=== PATIENT | female | born 1970 | race Caucasian/White ===

== ENCOUNTER 2018-01-16 19:50 | Emergency (ER) | payer MEDICAID ==
[~2018-01-16] VITALS: Ht 154.9 cm; Wt 102.5 kg
[~2018-01-16 19:50] MED LIST: LEVO150T PO
[2018-01-16 20:40] LABS: BASOPHILS # (AUTO) 0.1 K/uL (0.0-8.0); BASOPHILS % (AUTO) 0.7 % (0.0-2.0); EOSINOPHILS # (AUTO) 0.1 K/uL (0.0-0.7); HEMATOCRIT 38.4 % (31.2-41.9); HEMOGLOBIN 12.1 g/dL (10.9-14.3); LYMPHOCYTES % (AUTO) 35.7 % (20.5-51.5); MEAN CORPUSCULAR HGB CONC 32 g/dL (32.3-35.6); MEAN CORPUSCULAR VOLUME 69.6 fL (75.5-95.3); MONOCYTES # (AUTO) 0.5 K/uL (2.0-10.0); MONOCYTES % (AUTO) 6.2 % (0.0-11.0); NEUTROPHILS # (AUTO) 4.7 K/uL (1.8-8.9); NEUTROPHILS % (AUTO) 56.4 % (38.5-71.5); PLATELET COUNT (AUTO) 255 K/uL (179-408); RED BLOOD CELL COUNT(AUTO) 5.52 MIL/uL (3.63-4.92); WHITE BLOOD COUNT (AUTO) 8.4 K/uL (3.8-11.8)
[2018-01-16 20:44] LABS: *BILIRUBIN,URIN NEGATIVE (NEGATIVE); *BLOOD, URINE 1+ (NEGATIVE); *CLARITY,URINE SLIGHTLY CLOUDY (CLEAR); *COLOR,URINE YELLOW (YELLOW); *KETONES,URINE NEGATIVE (NEGATIVE); *PROTEIN,URINE NEGATIVE (NEGATIVE); *UROBILINOGEN,URINE 0.2 E.U./dl (NORMAL); LEUKOCYTE ESTERASE ,URINE NEGATIVE (NEGATIVE); NITRITE, URINE NEGATIVE (NEGATIVE); UGLUCOSE NEGATIVE (NEGATIVE)
[2018-01-16 20:45] LABS: *URINE HCG, QUAL NEGATIVE (NEGATIVE)
[2018-01-16 20:47] LABS: BACTERIA,URINE NONE SEEN /HPF (NONE SEEN); SQUAMOUS EPITHELIAL CELL,UR FEW /HPF (NONE SEEN); WBC,URINE 0-3 /HPF (0-3)
[2018-01-16 20:51] LABS: CREATININE 0.7 mg/dL (0.6-1.3); POTASSIUM 4.1 mmol/L (3.5-5.1)
[2018-01-16 20:57] LABS: BILIRUBIN,DIRECT 0.1 mg/dL (0.0-0.2); BILIRUBIN,TOTAL 0.3 mg/dL (0.2-1.0); TOTAL PROTEIN, SERUM 7.5 g/dL (6.4-8.2)
--- NOTE | 2018-01-16 21:34 | NUR ---
Patient discharged to home in stable conditon. Written and verbal after care instructions given. Patient verbalizes understanding of instructions.
[2018-01-16 21:35] VITALS: BP 119/88
== END 2018-01-16 21:35 | disposition home or self-care (01) ==
LOC: ER 19:52
DX: K59.00 Constipation, unspecified (principal); K80.20 Calculus of gallbladder without cholecystitis without obstruction; E03.9 Hypothyroidism, unspecified; Z88.8 Allergy status to other drugs, medicaments and biological substances; Z79.899 Other long term (current) drug therapy
CPT/HCPCS: 36415; 71045; 83690; 84703; 85025; A4663

== ENCOUNTER 2018-07-16 22:54 | Emergency (ER) | payer MEDICAID ==
[~2018-07-16] VITALS: Ht 154.9 cm; Wt 99.8 kg
--- NOTE | 2018-07-16 23:00 | NUR ---
Pt. ambulated into ED w/ c/o CP 01/02 for past 30 min., reports contacting her PCP 6 hours ago w/ c/o jaw pain who told her to visit ED,
--- NOTE | 2018-07-16 23:14 | NUR ---
highway engineering technician in w/ pt. for blood draw,
--- NOTE | 2018-07-16 23:28 | NUR ---
Rad. tech. called for chest xray
[2018-07-16 23:33] LABS: BASOPHILS # (AUTO) 0.1 K/uL (0.0-8.0); BASOPHILS % (AUTO) 1.1 % (0.0-2.0); EOSINOPHILS # (AUTO) 0.2 K/uL (0.0-0.7); EOSINOPHILS % (AUTO) 1.7 % (0.0-7.0); HEMATOCRIT 35.2 % (31.2-41.9); HEMOGLOBIN 11.8 g/dL (10.9-14.3); LYMPHOCYTES # (AUTO) 3.9 K/uL (20.0-40.0); LYMPHOCYTES % (AUTO) 40.2 % (20.5-51.5); MEAN CORPUSCULAR HEMOGLOBIN 22.7 uug (24.7-32.8); MEAN CORPUSCULAR HGB CONC 33 g/dL (32.3-35.6); MEAN CORPUSCULAR VOLUME 67.9 fL (75.5-95.3); MONOCYTES # (AUTO) 0.5 K/uL (2.0-10.0); MONOCYTES % (AUTO) 5.4 % (0.0-11.0); NEUTROPHILS % (AUTO) 51.6 % (38.5-71.5); PLATELET COUNT (AUTO) 272 K/uL (179-408); RED BLOOD CELL COUNT(AUTO) 5.19 MIL/uL (3.63-4.92); WHITE BLOOD COUNT (AUTO) 9.6 K/uL (3.8-11.8)
--- NOTE | 2018-07-16 23:33 | NUR ---
Rad. tech. at bedside for chest xray
[2018-07-16 23:39] LABS: CREATININE 0.7 mg/dL (0.6-1.3); POTASSIUM 3.5 mmol/L (3.5-5.1)
[2018-07-16 23:51] LABS: BILIRUBIN,DIRECT 0.1 mg/dL (0.0-0.2); BILIRUBIN,TOTAL 0.2 mg/dL (0.2-1.0); TOTAL PROTEIN, SERUM 7.3 g/dL (6.4-8.2)
--- NOTE | 2018-07-17 00:11 | NUR ---
Nares swab specimen collected and sent to lab for influenza testing
[2018-07-17 01:04] LABS: EOSINOPHILS % (MANUAL) 4 % (0-8); LYMPHOCYTES % (MANUAL) 27 % (20-40); MONOCYTES % (MANUAL) 2 % (2-10); NEUTROPHILS % (MANUAL) 67 % (42-75)
--- NOTE | 2018-07-17 01:08 | NUR ---
Patient discharged to home in stable conditon. Written and verbal after care instructions given. Patient verbalizes understanding of instructions. Pt. d/c per MD orders, ID band removed, all belongings w/ pt., ambulated out of ED w/ steady gait, left in private vehicle, NAD
== END 2018-07-17 01:12 | disposition home or self-care (01) ==
LOC: ER 22:54
DX: R07.89 Other chest pain (principal); R68.84 Jaw pain; E03.9 Hypothyroidism, unspecified; Z88.8 Allergy status to other drugs, medicaments and biological substances; Z79.899 Other long term (current) drug therapy
CPT/HCPCS: 36415; 70030-TC; 71045; 85025; 85730; 87400; 93005; A4663

== ENCOUNTER 2018-09-24 15:11 | Emergency (ER) | payer MEDICAID ==
[~2018-09-24] VITALS: Ht 154.9 cm; Wt 99.8 kg
--- NOTE | 2018-09-24 16:05 | NUR ---
PATIENT WAS MSE BY DR TONY IN ROOM 02A.
[2018-09-24] MEDS ORDERED: BENZONATATE 100 MG CAPSULE PO ONE (16:15)
[2018-09-24] MEDS ORDERED: BENZONATATE 100 MG CAPSULE ONE (16:16)
[2018-09-24 16:34] LABS: CARBON DIOXIDE 26 mmol/L (21-32); CHLORIDE 105 mmol/L (98-107); CREATININE 0.5 mg/dL (0.6-1.3); GLUCOSE 85 mg/dL (74-106); POTASSIUM 3.8 mmol/L (3.5-5.1); UREA NITROGEN, BLOOD 10 mg/dL (7-18)
[2018-09-24 16:39] LABS: ALANINE AMINOTRANSFERASE 41 U/L (14-59); ALKALINE PHOSPHATASE 78 U/L (50-136); ASPARTATE AMINOTRANSFERASE 19 U/L (15-37); BILIRUBIN,DIRECT 0.1 mg/dL (0.0-0.2); BILIRUBIN,TOTAL 0.3 mg/dL (0.2-1.0); TOTAL PROTEIN, SERUM 7.3 g/dL (6.4-8.2)
[2018-09-24 16:41] LABS: BASOPHILS # (AUTO) 0.1 K/uL (0.0-8.0); BASOPHILS % (AUTO) 0.6 % (0.0-2.0); EOSINOPHILS # (AUTO) 0.1 K/uL (0.0-0.7); HEMOGLOBIN 11.6 g/dL (10.9-14.3); LYMPHOCYTES # (AUTO) 2.5 K/uL (20.0-40.0); LYMPHOCYTES % (AUTO) 30.8 % (20.5-51.5); MEAN CORPUSCULAR HEMOGLOBIN 21.2 uug (24.7-32.8); MEAN CORPUSCULAR HGB CONC 31 g/dL (32.3-35.6); MEAN CORPUSCULAR VOLUME 67.6 fL (75.5-95.3); MONOCYTES # (AUTO) 0.5 K/uL (2.0-10.0); MONOCYTES % (AUTO) 6.5 % (0.0-11.0); NEUTROPHILS % (AUTO) 61.1 % (38.5-71.5); PLATELET COUNT (AUTO) 263 K/uL (179-408); RED BLOOD CELL COUNT(AUTO) 5.47 MIL/uL (3.63-4.92); WHITE BLOOD COUNT (AUTO) 8.2 K/uL (3.8-11.8)
--- NOTE | 2018-09-24 18:13 | NUR ---
NELSON BRINK AT BEDSIDE FOR PT UPDATE.
--- NOTE | 2018-09-24 18:22 | NUR ---
Patient discharged to home in stable conditon. Written and verbal after care instructions given. Patient verbalizes understanding of instructions. PT D/C W/ PRESCRIPTIONS. ALL BELONGINGS W/ PT. PT SELF-AMBULATED W/O DIFFICULTY.
[2018-09-24 18:23] VITALS: BP 121/66
== END 2018-09-24 18:24 | disposition home or self-care (01) ==
LOC: ER 15:14
DX: J20.9 Acute bronchitis, unspecified (principal); E03.9 Hypothyroidism, unspecified; Z88.8 Allergy status to other drugs, medicaments and biological substances; Z79.899 Other long term (current) drug therapy
CPT/HCPCS: 36415; 70030-TC; 71045; 84443; 85025; 93005; A4663

== ENCOUNTER 2019-08-12 15:18 | Emergency (ER) | payer MEDICAID ==
[~2019-08-12] VITALS: Ht 154.9 cm; Wt 99.8 kg
--- NOTE | 2019-08-12 16:21 | NUR ---
Patient discharged to home in stable conditon. Written and verbal after care instructions given. Patient verbalizes understanding of instructions.PT WALKS IN STEADY GAIT.
== END 2019-08-12 16:22 | disposition home or self-care (01) ==
LOC: ER 15:18
DX: J06.9 Acute upper respiratory infection, unspecified (principal); E03.9 Hypothyroidism, unspecified; Z88.1 Allergy status to other antibiotic agents; Z88.8 Allergy status to other drugs, medicaments and biological substances; Z79.899 Other long term (current) drug therapy
CPT/HCPCS: A4663

== ENCOUNTER 2019-11-01 17:50 | Emergency (ER) | payer MEDICAID ==
[~2019-11-01] VITALS: Ht 154.9 cm; Wt 102.1 kg
--- NOTE | 2019-11-01 18:49 | NUR ---
Patient discharged to home in stable condition. Written and verbal after care instructions given. Patient verbalizes understanding of instructions. pt walks in steady gait. Stressed follow up or return to ER for worsening s/s.
== END 2019-11-01 18:52 | disposition home or self-care (01) ==
LOC: ER 18:00
DX: M54.41 Lumbago with sciatica, right side (principal); E03.9 Hypothyroidism, unspecified; Z83.3 Family history of diabetes mellitus; Z82.49 Family history of ischemic heart disease and other diseases of the circulatory system; Z79.890 Hormone replacement therapy
CPT/HCPCS: A4663

== ENCOUNTER 2021-02-06 16:37 | Emergency (ER) | payer MEDICAID ==
[~2021-02-06] VITALS: Ht 154.9 cm; Wt 90.7 kg
[2021-02-06 17:19] LABS: *BILIRUBIN,URIN NEGATIVE (NEGATIVE); *CLARITY,URINE CLEAR (CLEAR); *COLOR,URINE YELLOW (YELLOW); *KETONES,URINE NEGATIVE (NEGATIVE); *UROBILINOGEN,URINE 0.2 E.U./dl (NORMAL); LEUKOCYTE ESTERASE ,URINE TRACE (NEGATIVE); NITRITE, URINE NEGATIVE (NEGATIVE); UGLUCOSE NEGATIVE (NEGATIVE)
[2021-02-06 17:24] LABS: *BLOOD, URINE TRACE (NEGATIVE)
[2021-02-06 17:26] LABS: *URINE HCG, QUAL NEGATIVE (NEGATIVE); BACTERIA,URINE FEW /HPF (NONE SEEN); SQUAMOUS EPITHELIAL CELL,UR FEW /HPF (NONE SEEN); URINE AMORPHOUS PHOSPHATES FEW /HPF
[2021-02-06 17:49] LABS: HEMATOCRIT 37.9 % (31.2-41.9); MEAN CORPUSCULAR HEMOGLOBIN 22.5 uug (24.7-32.8); MEAN CORPUSCULAR VOLUME 68.8 fL (75.5-95.3); PLATELET COUNT (AUTO) 289 K/uL (179-408)
[2021-02-06 17:58] LABS: PHOSPHOROUS 3.2 mg/dL (2.5-4.9)
[2021-02-06 18:05] LABS: CARBON DIOXIDE 28 mmol/L (21-32); CHLORIDE 103 mmol/L (98-107); CREATININE 0.7 mg/dL (0.6-1.3); GLUCOSE 93 mg/dL (74-106); POTASSIUM 4.2 mmol/L (3.5-5.1); UREA NITROGEN, BLOOD 13 mg/dL (7-18)
[2021-02-06 18:14] LABS: ALANINE AMINOTRANSFERASE 31 U/L (14-59); ALKALINE PHOSPHATASE 77 U/L (50-136); ASPARTATE AMINOTRANSFERASE 17 U/L (15-37); BILIRUBIN,DIRECT < 0.1 mg/dL (0.0-0.2); BILIRUBIN,TOTAL 0.2 mg/dL (0.2-1.0); LIPASE 133 U/L (73-393); TOTAL PROTEIN, SERUM 7.3 g/dL (6.4-8.2)
[2021-02-06] MEDS: IBUPROFEN 800 MG TABLET PO ONE (18:14)
[2021-02-06] MEDS ORDERED: IBUPROFEN 800 MG TABLET ONE (18:16)
--- NOTE | 2021-02-06 18:42 | NUR ---
1830pm: Recruiting Coordinator assumes care, 1st contact with patient, she AOX4, calm & breathing easily, afebrile, skin warm & dry, pending results & disposition
--- NOTE | 2021-02-06 19:03 | NUR ---
For discharge, pending written discharge papers from Dr Daigle. Hands off report given to 7pm nurse Maria Teresa
[2021-02-06] MEDS ORDERED: OXYC5TAB3 PO (19:05)
[2021-02-06] MEDS ORDERED: IBUP-1957 PO (19:05)
[2021-02-06] MEDS ORDERED: CEFP200T14 PO (19:05)
[2021-02-06 19:25] VITALS: BP 152/83
--- NOTE | 2021-02-06 19:25 | NUR ---
Patient discharged to home in stable condition. A/O x3, no SOB or labored breathing, afebrile. Denies pain/discomfort. Written and verbal after care instructions given. Patient verbalizes understanding of instructions. Stressed follow up or return to ER for worsening s/s. Steady gait.
== END 2021-02-06 19:26 | disposition home or self-care (01) ==
LOC: ER 16:38
DX: M54.41 Lumbago with sciatica, right side (principal); R10.31 Right lower quadrant pain; N10 Acute pyelonephritis; R59.1 Generalized enlarged lymph nodes; E07.9 Disorder of thyroid, unspecified; Z88.6 Allergy status to analgesic agent; Z88.8 Allergy status to other drugs, medicaments and biological substances; Z83.3 Family history of diabetes mellitus; Z82.49 Family history of ischemic heart disease and other diseases of the circulatory system; Z79.890 Hormone replacement therapy; I45.10 Unspecified right bundle-branch block
CPT/HCPCS: 36415; 70030-TC; 83690; 83735; 84100; 84703; 85025; 87086; 93005; A4663; J7030

== ENCOUNTER 2022-04-29 19:03 | Emergency (ER) | payer MEDICAID ==
[~2022-04-29] VITALS: Ht 154.9 cm; Wt 99.8 kg
[~2022-04-29 19:03] MED LIST changes: +CEFP200T14 PO; +IBUP-1957 PO; +OXYC5TAB3 PO
[2022-04-29 20:28] LABS: *BILIRUBIN,URIN NEGATIVE (NEGATIVE); *CLARITY,URINE CLEAR (CLEAR); *COLOR,URINE YELLOW (YELLOW); *KETONES,URINE NEGATIVE (NEGATIVE); *UROBILINOGEN,URINE 0.2 E.U./dl (NORMAL); LEUKOCYTE ESTERASE ,URINE NEGATIVE (NEGATIVE); NITRITE, URINE NEGATIVE (NEGATIVE); PH,URINE 6.5 (5.0-8.0); UGLUCOSE NEGATIVE (NEGATIVE)
[2022-04-29 20:29] LABS: *BLOOD, URINE TRACE (NEGATIVE); *URINE HCG, QUAL NEGATIVE (NEGATIVE); BACTERIA,URINE NONE SEEN /HPF (NONE SEEN); RBC,URINE 0-3 /HPF (0-3); SQUAMOUS EPITHELIAL CELL,UR FEW /HPF (NONE SEEN); WBC,URINE 0-3 /HPF (0-3)
[2022-04-29] MEDS ORDERED: HYDR2TAB4 PO (20:52)
[2022-04-29] MEDS ORDERED: ONDA4TAB5 PO (20:52)
--- NOTE | 2022-04-29 22:08 | NUR ---
Patient discharged to home in stable condition. A/O x4. NAD noted. Ambulatory with a steady gait. All belongings with patient. Written and verbal after care instructions given. Patient verbalizes understanding of instructions. Stressed follow up or return to ER for worsening s/s.
[2022-04-29 22:12] VITALS: BP 138/79
== END 2022-04-29 22:08 | disposition home or self-care (01) ==
LOC: ER 19:05
DX: M54.41 Lumbago with sciatica, right side (principal); N20.0 Calculus of kidney; Z83.3 Family history of diabetes mellitus; Z82.49 Family history of ischemic heart disease and other diseases of the circulatory system; Z88.6 Allergy status to analgesic agent; E03.9 Hypothyroidism, unspecified; Z79.890 Hormone replacement therapy
CPT/HCPCS: 84703; A4663